=== PATIENT | female | born 1960 | race American Indian/Alaskan Native ===

== ENCOUNTER 2016-09-26 21:48 | Emergency (ER) | payer MEDICARE ==
--- NOTE | 2016-09-26 22:13 | Emergency Department Report ---
ED Altered Mental Status HPI - General Chief Complaint: Psych Stated Complaint: MEDICAL EMERGENCY Time Seen by Provider: 09/26/16 22:11 Source: patient, RN notes reviewed Limitations: Altered Mental Status - History of Present Illness Initial Comments: This patient is a 56-year-old female. She is previously unknown to me. Please see her other medical record ([id number]). The patient has a past medical history of hypertension, schizoaffective disorder , bipolar disorder, mutism and hypothyroidism. The patient presented to the ER after being driving there by a cab. She presented fully just. Upon arrival to triage, the patient was not speaking. She was mute. She would not follow commands. She was brought back emergently. She was found to have a normal fingerstick, and would have episodes of explosive speech, followed by episodes of extreme quiet. The patient does not have any family members with her, and she is unable to describe exacerbating or relieving factors. MD Complaint: confusion -: unknown Consistency of Symptoms: constant Context: other Associated Symptoms: other (per hpi) - Related Data Allergies Allergy/AdvReac Type Severity Reaction Status Date / Time Unable to Assess Allergy Verified 09/27/16 00:02 ED Review of Systems ROS: Stated complaint: MEDICAL EMERGENCY Other details as noted in HPI Comment: Unobtainable due to pts medical conditions ED Physical Exam - General Limitations: Other (the patient is mute. She will not answer open or close any questions. She does not follow commands.) General appearance: in no apparent distress - Head Head exam: Present: atraumatic, normocephalic - Eye Eye exam: Present: normal appearance, PERRL, EOMI. Absent: nystagmus - ENT ENT exam: Present: normal exam, normal orophraynx, mucous membranes moist, normal external ear exam - Neck Neck exam: Present: normal inspection, full ROM. Absent: tenderness, meningismus - Respiratory Respiratory exam: Present: normal lung sounds bilaterally. Absent: respiratory distress, wheezes, rales, rhonchi, stridor, chest wall tenderness, accessory muscle use, decreased breath sounds, prolonged expiratory - Cardiovascular Cardiovascular Exam: Present: regular rate, normal rhythm, normal heart sounds. Absent: systolic murmur, diastolic murmur, rubs, gallop - GI/Abdominal GI/Abdominal exam: Present: soft, normal bowel sounds. Absent: distended, tenderness, guarding, rebound, rigid, pulsatile mass - Extremities Exam Extremities exam: Present: normal inspection, full ROM, normal capillary refill. Absent: calf tenderness - Back Exam Back exam: Present: normal inspection, full ROM. Absent: tenderness, CVA tenderness (R), CVA tenderness (L), muscle spasm, paraspinal tenderness, vertebral tenderness - Neurological Exam Neurological exam: Present: altered, normal gait, other (patient moves 4 extremities spontaneously. There is no obvious facial droop. Patient intermittently speaks in full sentences.) - Psychiatric Psychiatric exam: Present: flat affect - Skin Skin exam: Present: warm, dry, intact, normal color. Absent: rash - Assessment Assessment Interval: Baseline - Level of Consciousness 1a. Level of Consciousness: alert - LOC Questions 1b. LOC Questions: answers no questions correctly - LOC Command 1c. LOC Commands: performs no tasks correctly - Best Gaze 2. Best Gaze: normal (Unable to assess) - Visual 3. Visual: no visual loss (Unable to assess) - Facial Palsy 4. Facial Palsy: normal symmetrical movement - Motor Arm 5b. Motor Arm Right: no drift 5a. Motor Arm Left: no drift - Motor Leg 6a. Motor Leg Left: no drift 6b. Motor Leg Right: no movement - Limb Ataxia 7. Limb Ataxia: amputation (Unable to assess) - Sensory 8. Sensory: severe/total sensory loss (Unable to assess) - Best Language 9. Best Language: mute/global aphasia - Dysarthria 10. Dysarthria: normal - Extinction and Inattention 11. Extinction/Inattention: profound inattention ED Course Vital Signs 09/26/16 09/27/16 09/27/16 22:13 09:10 17:57 Temperature 97.8 F 97 F L 98.5 F Pulse Rate 97 H 77 89 Respiratory 15 18 18 Rate Blood Pressure 168/107 149/94 132/89 [Right] O2 Sat by Pulse 100 99 100 Oximetry - Lab Data Result diagrams: 09/26/16 22:20 09/26/16 22:20 Lab Results 09/26/16 09/26/16 09/26/16 Range/Units 02:00 21:54 22:20 WBC 7.6 (4.5-11.0) K/mm3 RBC 5.29 H (3.65-5.03) M/mm3 Hgb 13.3 (10.1-14.3) gm/dl Hct 42.0 (30.3-42.9) % MCV 79 (79-97) fl MCH 25 L (28-32) pg MCHC 32 (30-34) % RDW 16.0 H (13.2-15.2) % Plt Count 186 (140-440) K/mm3 Lymph % (Auto) 15.6 (13.4-35.0) % [place] % (Auto) 5.4 (0.0-7.3) % Eos % (Auto) 0.1 (0.0-4.3) % Baso % (Auto) 0.5 (0.0-1.8) % Lymph # 1.2 (1.2-5.4) K/mm3 [place] # 0.4 (0.0-0.8) K/mm3 Eos # 0.0 (0.0-0.4) K/mm3 Baso # 0.0 (0.0-0.1) K/mm3 Seg Neutrophils % 78.4 H (40.0-70.0) % Seg Neutrophils # 5.9 (1.8-7.7) K/mm3 PT (12.2-14.9) Sec. INR (0.87-1.13) APTT (24.2-36.6) Sec. Sodium (137-145) mmol/L Potassium (3.6-5.0) mmol/L Chloride (98-107) mmol/L Carbon Dioxide (22-30) mmol/L Anion Gap mmol/L BUN (7-17) mg/dL Creatinine (0.7-1.2) mg/dL Estimated GFR ml/min BUN/Creatinine Ratio % Glucose (65-100) mg/dL POC Glucose 126 H (70-105) Calcium (8.4-10.2) mg/dL Magnesium (1.7-2.3) mg/dL Total Bilirubin (0.1-1.2) mg/dL AST (5-40) units/L ALT (7-56) units/L Alkaline Phosphatase (35-129) units/L Ammonia (25-60) umol/L Total Creatine Kinase (30-135) units/L Troponin T (0.00-0.029) ng/mL Total Protein (6.3-8.2) g/dL Albumin (3.9-5) g/dL Albumin/Globulin Ratio % TSH (0.270-4.200) mlU/mL Free T4 (0.76-1.46) ng/dL Urine Color Yellow (Yellow) Urine Turbidity Clear (Clear) Urine pH 5.0 (5.0-7.0) Ur Specific [place] 1.014 (1.003-1.030) Urine Protein <15 mg/dl (Negative) mg/dL Urine Glucose (UA) Neg (Negative) mg/dL Urine Ketones Neg (Negative) mg/dL Urine Blood Sm (Negative) Urine Nitrite Neg (Negative) Urine Bilirubin Neg (Negative) Urine Urobilinogen 2.0 (<2.0) mg/dL Ur Leukocyte Esterase Neg (Negative) Urine WBC (Auto) 1.0 (0.0-6.0) /HPF Urine RBC (Auto) 3.0 (0.0-6.0) /HPF U Epithel Cells (Auto) 1.0 (0-13.0) /HPF Hyaline Casts 1 /LPF Urine Mucus 2+ /HPF Salicylates (2.8-20.0) mg/dL Urine Opiates Screen Urine Methadone Screen Acetaminophen (10.0-30.0) ug/mL Ur Barbiturates Screen Ur Phencyclidine Scrn Ur Amphetamines Screen U Benzodiazepines Scrn Urine Cocaine Screen U Marijuana (THC) Screen Drugs of Abuse Note Plasma/Serum Alcohol (0-0.07) gm% 09/26/16 09/26/16 09/26/16 Range/Units 22:20 22:20 22:20 WBC (4.5-11.0) K/mm3 RBC (3.65-5.03) M/mm3 Hgb (10.1-14.3) gm/dl Hct (30.3-42.9) % MCV (79-97) fl MCH (28-32) pg MCHC (30-34) % RDW (13.2-15.2) % Plt Count (140-440) K/mm3 Lymph % (Auto) (13.4-35.0) % [place] % (Auto) (0.0-7.3) % Eos % (Auto) (0.0-4.3) % Baso % (Auto) (0.0-1.8) % Lymph # (1.2-5.4) K/mm3 [place] # (0.0-0.8) K/mm3 Eos # (0.0-0.4) K/mm3 Baso # (0.0-0.1) K/mm3 Seg Neutrophils % (40.0-70.0) % Seg Neutrophils # (1.8-7.7) K/mm3 PT 12.3 (12.2-14.9) Sec. INR 0.87 (0.87-1.13) APTT 22.2 L (24.2-36.6) Sec. Sodium 139 (137-145) mmol/L Potassium 3.6 (3.6-5.0) mmol/L Chloride 100.9 (98-107) mmol/L Carbon Dioxide 22 (22-30) mmol/L Anion Gap 20 mmol/L BUN 10 (7-17) mg/dL Creatinine 0.6 L (0.7-1.2) mg/dL Estimated GFR > 60 ml/min BUN/Creatinine Ratio 16.66 % Glucose 130 H (65-100) mg/dL POC Glucose (70-105) Calcium 11.3 H (8.4-10.2) mg/dL Magnesium (1.7-2.3) mg/dL Total Bilirubin 0.40 (0.1-1.2) mg/dL AST 18 (5-40) units/L ALT 7 (7-56) units/L Alkaline Phosphatase 65 (35-129) units/L Ammonia 33.0 (25-60) umol/L Total Creatine Kinase 74 (30-135) units/L Troponin T < 0.010 (0.00-0.029) ng/mL Total Protein 8.4 H (6.3-8.2) g/dL Albumin 4.3 (3.9-5) g/dL Albumin/Globulin Ratio 1.0 % TSH (0.270-4.200) mlU/mL Free T4 (0.76-1.46) ng/dL Urine Color (Yellow) Urine Turbidity (Clear) Urine pH (5.0-7.0) Ur Specific [place] (1.003-1.030) Urine Protein (Negative) mg/dL Urine Glucose (UA) (Negative) mg/dL Urine Ketones (Negative) mg/dL Urine Blood (Negative) Urine Nitrite (Negative) Urine Bilirubin (Negative) Urine Urobilinogen (<2.0) mg/dL Ur Leukocyte Esterase (Negative) Urine WBC (Auto) (0.0-6.0) /HPF Urine RBC (Auto) (0.0-6.0) /HPF U Epithel Cells (Auto) (0-13.0) /HPF Hyaline Casts /LPF Urine Mucus /HPF Salicylates (2.8-20.0) mg/dL Urine Opiates Screen Urine Methadone Screen Acetaminophen (10.0-30.0) ug/mL Ur Barbiturates Screen Ur Phencyclidine Scrn Ur Amphetamines Screen U Benzodiazepines Scrn Urine Cocaine Screen U Marijuana (THC) Screen Drugs of Abuse Note Plasma/Serum Alcohol (0-0.07) gm% 09/26/16 09/26/16 09/26/16 Range/Units 22:20 22:20 22:20 WBC (4.5-11.0) K/mm3 RBC (3.65-5.03) M/mm3 Hgb (10.1-14.3) gm/dl Hct (30.3-42.9) % MCV (79-97) fl MCH (28-32) pg MCHC (30-34) % RDW (13.2-15.2) % Plt Count (140-440) K/mm3 Lymph % (Auto) (13.4-35.0) % [place] % (Auto) (0.0-7.3) % Eos % (Auto) (0.0-4.3) % Baso % (Auto) (0.0-1.8) % Lymph # (1.2-5.4) K/mm3 [place] # (0.0-0.8) K/mm3 Eos # (0.0-0.4) K/mm3 Baso # (0.0-0.1) K/mm3 Seg Neutrophils % (40.0-70.0) % Seg Neutrophils # (1.8-7.7) K/mm3 PT (12.2-14.9) Sec. INR (0.87-1.13) APTT (24.2-36.6) Sec. Sodium (137-145) mmol/L Potassium (3.6-5.0) mmol/L Chloride (98-107) mmol/L Carbon Dioxide (22-30) mmol/L Anion Gap mmol/L BUN (7-17) mg/dL Creatinine (0.7-1.2) mg/dL Estimated GFR ml/min BUN/Creatinine Ratio % Glucose (65-100) mg/dL POC Glucose (70-105) Calcium (8.4-10.2) mg/dL Magnesium (1.7-2.3) mg/dL Total Bilirubin (0.1-1.2) mg/dL AST (5-40) units/L ALT (7-56) units/L Alkaline Phosphatase (35-129) units/L Ammonia (25-60) umol/L Total Creatine Kinase (30-135) units/L Troponin T (0.00-0.029) ng/mL Total Protein (6.3-8.2) g/dL Albumin (3.9-5) g/dL Albumin/Globulin Ratio % TSH 29.180 H (0.270-4.200) mlU/mL Free T4 (0.76-1.46) ng/dL Urine Color (Yellow) Urine Turbidity (Clear) Urine pH (5.0-7.0) Ur Specific [place] (1.003-1.030) Urine Protein (Negative) mg/dL Urine Glucose (UA) (Negative) mg/dL Urine Ketones (Negative) mg/dL Urine Blood (Negative) Urine Nitrite (Negative) Urine Bilirubin (Negative) Urine Urobilinogen (<2.0) mg/dL Ur Leukocyte Esterase (Negative) Urine WBC (Auto) (0.0-6.0) /HPF Urine RBC (Auto) (0.0-6.0) /HPF U Epithel Cells (Auto) (0-13.0) /HPF Hyaline Casts /LPF Urine Mucus /HPF Salicylates < 0.3 L (2.8-20.0) mg/dL Urine Opiates Screen Urine Methadone Screen Acetaminophen < 15.0 (10.0-30.0) ug/mL Ur Barbiturates Screen Ur Phencyclidine Scrn Ur Amphetamines Screen U Benzodiazepines Scrn Urine Cocaine Screen U Marijuana (THC) Screen Drugs of Abuse Note Plasma/Serum Alcohol (0-0.07) gm% 09/26/16 09/26/16 09/26/16 Range/Units 22:20 22:20 22:20 WBC (4.5-11.0) K/mm3 RBC (3.65-5.03) M/mm3 Hgb (10.1-14.3) gm/dl Hct (30.3-42.9) % MCV (79-97) fl MCH (28-32) pg MCHC (30-34) % RDW (13.2-15.2) % Plt Count (140-440) K/mm3 Lymph % (Auto) (13.4-35.0) % [place] % (Auto) (0.0-7.3) % Eos % (Auto) (0.0-4.3) % Baso % (Auto) (0.0-1.8) % Lymph # (1.2-5.4) K/mm3 [place] # (0.0-0.8) K/mm3 Eos # (0.0-0.4) K/mm3 Baso # (0.0-0.1) K/mm3 Seg Neutrophils % (40.0-70.0) % Seg Neutrophils # (1.8-7.7) K/mm3 PT (12.2-14.9) Sec. INR (0.87-1.13) APTT (24.2-36.6) Sec. Sodium (137-145) mmol/L Potassium (3.6-5.0) mmol/L Chloride (98-107) mmol/L Carbon Dioxide (22-30) mmol/L Anion Gap mmol/L BUN (7-17) mg/dL Creatinine (0.7-1.2) mg/dL Estimated GFR ml/min BUN/Creatinine Ratio % Glucose (65-100) mg/dL POC Glucose (70-105) Calcium (8.4-10.2) mg/dL Magnesium 2.10 (1.7-2.3) mg/dL Total Bilirubin (0.1-1.2) mg/dL AST (5-40) units/L ALT (7-56) units/L Alkaline Phosphatase (35-129) units/L Ammonia (25-60) umol/L Total Creatine Kinase (30-135) units/L Troponin T (0.00-0.029) ng/mL Total Protein (6.3-8.2) g/dL Albumin (3.9-5) g/dL Albumin/Globulin Ratio % TSH (0.270-4.200) mlU/mL Free T4 0.60 L (0.76-1.46) ng/dL Urine Color (Yellow) Urine Turbidity (Clear) Urine pH (5.0-7.0) Ur Specific [place] (1.003-1.030) Urine Protein (Negative) mg/dL Urine Glucose (UA) (Negative) mg/dL Urine Ketones (Negative) mg/dL Urine Blood (Negative) Urine Nitrite (Negative) Urine Bilirubin (Negative) Urine Urobilinogen (<2.0) mg/dL Ur Leukocyte Esterase (Negative) Urine WBC (Auto) (0.0-6.0) /HPF Urine RBC (Auto) (0.0-6.0) /HPF U Epithel Cells (Auto) (0-13.0) /HPF Hyaline Casts /LPF Urine Mucus /HPF Salicylates (2.8-20.0) mg/dL Urine Opiates Screen Urine Methadone Screen Acetaminophen (10.0-30.0) ug/mL Ur Barbiturates Screen Ur Phencyclidine Scrn Ur Amphetamines Screen U Benzodiazepines Scrn Urine Cocaine Screen U Marijuana (THC) Screen Drugs of Abuse Note Plasma/Serum Alcohol < 0.01 (0-0.07) gm% 09/27/16 Range/Units 02:00 WBC (4.5-11.0) K/mm3 RBC (3.65-5.03) M/mm3 Hgb (10.1-14.3) gm/dl Hct (30.3-42.9) % MCV (79-97) fl MCH (28-32) pg MCHC (30-34) % RDW (13.2-15.2) % Plt Count (140-440) K/mm3 Lymph % (Auto) (13.4-35.0) % [place] % (Auto) (0.0-7.3) % Eos % (Auto) (0.0-4.3) % Baso % (Auto) (0.0-1.8) % Lymph # (1.2-5.4) K/mm3 [place] # (0.0-0.8) K/mm3 Eos # (0.0-0.4) K/mm3 Baso # (0.0-0.1) K/mm3 Seg Neutrophils % (40.0-70.0) % Seg Neutrophils # (1.8-7.7) K/mm3 PT (12.2-14.9) Sec. INR (0.87-1.13) APTT (24.2-36.6) Sec. Sodium (137-145) mmol/L Potassium (3.6-5.0) mmol/L Chloride (98-107) mmol/L Carbon Dioxide (22-30) mmol/L Anion Gap mmol/L BUN (7-17) mg/dL Creatinine (0.7-1.2) mg/dL Estimated GFR ml/min BUN/Creatinine Ratio % Glucose (65-100) mg/dL POC Glucose (70-105) Calcium (8.4-10.2) mg/dL Magnesium (1.7-2.3) mg/dL Total Bilirubin (0.1-1.2) mg/dL AST (5-40) units/L ALT (7-56) units/L Alkaline Phosphatase (35-129) units/L Ammonia (25-60) umol/L Total Creatine Kinase (30-135) units/L Troponin T (0.00-0.029) ng/mL Total Protein (6.3-8.2) g/dL Albumin (3.9-5) g/dL Albumin/Globulin Ratio % TSH (0.270-4.200) mlU/mL Free T4 (0.76-1.46) ng/dL Urine Color (Yellow) Urine Turbidity (Clear) Urine pH (5.0-7.0) Ur Specific [place] (1.003-1.030) Urine Protein (Negative) mg/dL Urine Glucose (UA) (Negative) mg/dL Urine Ketones (Negative) mg/dL Urine Blood (Negative) Urine Nitrite (Negative) Urine Bilirubin (Negative) Urine Urobilinogen (<2.0) mg/dL Ur Leukocyte Esterase (Negative) Urine WBC (Auto) (0.0-6.0) /HPF Urine RBC (Auto) (0.0-6.0) /HPF U Epithel Cells (Auto) (0-13.0) /HPF Hyaline Casts /LPF Urine Mucus /HPF Salicylates (2.8-20.0) mg/dL Urine Opiates Screen Presumptive negative Urine Methadone Screen Presumptive negative Acetaminophen (10.0-30.0) ug/mL Ur Barbiturates Screen Presumptive negative Ur Phencyclidine Scrn Presumptive negative Ur Amphetamines Screen Presumptive negative U Benzodiazepines Scrn Presumptive positive Urine Cocaine Screen Presumptive negative U Marijuana (THC) Screen Presumptive negative Drugs of Abuse Note Disclamer Plasma/Serum Alcohol (0-0.07) gm% - EKG Data -: EKG Interpreted by Me 09/27/16 01:32 Normal sinus, 88 bpm, left axis deviation, left ventricular hypertrophy, abnormal EKG, not morphologically consistent with STEMI, appears unchanged from prior from January 2015. - Radiology Data Radiology results: report reviewed, image reviewed interpreted by me: X-ray the chest is negative - Medical Decision Making Noncontrast CT scan of the brain is negative Differential diagnosis: Pneumonia, intracranial hemorrhage, mutism, conversion disorder, hypothyroidism, urinary tract infection, psychiatric disease Assessment and plan: 56-year-old female with known history of mutism, hypothyroidism, who presents essentially with meat speech, with intermittent periods of explosive speech. She is afebrile with unremarkable vital signs, her presentation today appears to be similar to prior presentations when medical records are reviewed. Laboratory studies chemistry hypothyroidism, which in and of itself would not be an immediate medical complication to psychiatric placement, as I would otherwise discharge the patient with Synthroid and instructions to follow up with primary care doctor if she would not psychiatrically ill or decompensated. She is placed on a 1013, her vital signs have remained stable, x-ray of the chest is negative, noncontrast CT scan of the brain is negative. Patient's old medication list is reviewed from prior chart review, she will be continued on her outpatient medications. At this point in time, there is no immediate medical contraindication to psychiatric admission/evaluation and consultation, and the crisis team has been informed. The urinalysis is pending. Given that there is no indication of trauma from her physical exam, there is no ecchymosis, there is no spinal tenderness, she is moving 4 extremities spontaneously, and given that she has presented multiple times in the past for similar mute behavior, I do believe she requires CT scan of the cervical spine. - Core Measures Measure Exclusions: not indicated Critical care attestation.: If time is entered above; I have spent that time in minutes in the direct care of this critically ill patient, excluding procedure time. ED Disposition Clinical Impression: Mutism, Mood disorder Disposition: DC/TX-65 PSY HOSP/PSY UNIT Is pt being admited?: No Does the pt Need Aspirin: No Condition: Stable Referrals: PRIMARY CARE, [Primary Care Provider] - 3-5 Days
[2016-09-26 22:57] LABS: Basophils % (Auto) 0.5 % (0.0-1.8); Eosinophils % (Auto) 0.1 % (0.0-4.3); Hemoglobin 13.3 gm/dl (10.1-14.3); Mean Corpuscular HGB Conc 32 % (30-34); Mean Corpuscular Volume 79 fl (79-97); Platelet Count 186 K/mm3 (140-440); Red Blood Count 5.29 M/mm3 (3.65-5.03); White Blood Count 7.6 K/mm3 (4.5-11.0)
[2016-09-26 22:59] LABS: Mean Corpuscular Hemoglobin 25 pg (28-32)
[2016-09-26] MEDS ORDERED: ATIVAN IM PRN (22:59)
[2016-09-26] MEDS ORDERED: HALDOL IM ONE (22:59)
[2016-09-26 23:05] LABS: INR 0.87 (0.87-1.13)
[2016-09-26 23:06] LABS: Partial Thromboplastin Time 22.2 Sec. (24.2-36.6)
[2016-09-26 23:11] LABS: Albumin 4.3 g/dL (3.9-5); Alkaline Phosphatase 65 units/L (35-129); BUN/Creatinine Ratio 16.66; Blood Urea Nitrogen 10 mg/dL (7-17); Calcium 11.3 mg/dL (8.4-10.2); Carbon Dioxide 22 mmol/L (22-30); Chloride 100.9 mmol/L (98-107); Creatine Kinase 74 units/L (30-135); Glucose 130 mg/dL (65-100); Sodium 139 mmol/L (137-145); Total Protein 8.4 g/dL (6.3-8.2)
[2016-09-26 23:33] LABS: Alanine Aminotransferase 7 units/L (7-56); Anion Gap 20 mmol/L; Potassium 3.6 mmol/L (3.6-5.0)
[2016-09-26] MEDS ORDERED: VALIUM ONE (23:54)
[2016-09-26] MEDS ORDERED: GEODON IM ONE (23:55)
[2016-09-26] MEDS ORDERED: VALIUM IV ONE (23:56)
--- NOTE | 2016-09-27 00:50 | Cat Scan Report ---
FINAL REPORT PROCEDURE: CT HEAD/BRAIN WO CON TECHNIQUE: Computerized tomography of the head was performed without contrast material. HISTORY: Altered Mental Status COMPARISON: No prior studies are available for comparison. FINDINGS: Skull and scalp: Normal. Paranasal sinuses: Normal. Ventricles and subarachnoid spaces: Normal. Cerebrum: No evidence of hemorrhage, acute infarction or mass . Cerebellum and brainstem: No evidence of hemorrhage, acute infarction or mass. Vasculature: Normal. Comments: None. IMPRESSION: There is no evidence of an acute intracranial process
[2016-09-27 02:31] LABS: Urine Drugs of Abuse Note Disclamer
[2016-09-27 02:39] LABS: Bilirubin,Urine NEG (Negative); Blood,Urine SM (Negative); Ketones,Urine NEG (Negative); Leukocyte Esterase,Urine NEG (Negative); Mucus,Urine 2+ /HPF; Nitrite,Urine NEG (Negative); Protein,Urine <15 mg/dL mg/dL (Negative)
[2016-09-27] MEDS: RisperDAL PO SCH ×2 (02:43→09:59)
[2016-09-27] MEDS: COGENTIN PO SCH ×2 (02:43→09:59)
[2016-09-27] MEDS ORDERED: SYNTHROID PO SCH ×2 (06:00→10:00)
[2016-09-27] MEDS ORDERED: XOPENEX IH ONE (06:18)
[2016-09-27] MEDS ORDERED: ZESTRIL PO SCH (10:00)
[2016-09-27] MEDS ORDERED: NORVASC PO SCH (10:00)
[2016-09-27] MEDS ORDERED: DIOVAN PO SCH (10:00)
--- NOTE | 2016-09-27 10:00 | XRay Report ---
AP CHEST :09/26/16 21:48:00 CLINICAL: Altered mental status. COMPARISON:None. FINDINGS: Normal heart and pulmonary vasculature. The lungs are normally expanded and clear. The bones and soft tissues are normal. IMPRESSION: Normal chest.
--- NOTE | 2016-09-27 15:55 | Consultation ---
History of Present Illness - Reason for Consult Consult date: 09/27/16 Reason for consult: psychiatric evaluation - Chief Complaint Chief complaint: "I didn't have any food" This patient is a 56-year-old female seen for psychiatric evaluation in the ER. She was observed eating. She stated she was not fed properly at the transitional home she is staying at because she didn't have any money. She was selectively mute. She has been at the transitional home for 4 months and prior to that she was in an in hospital. She cannot give further details except to say she has been in multiple facilities in her life and 4 in the last year. The patient has a past medical history of hypertension, schizoaffective disorder , bipolar disorder, mutism and hypothyroidism. The patient does not have any family members with her, and no further history could be obtained. Medications and Allergies Allergies Allergy/AdvReac Type Severity Reaction Status Date / Time Unable to Assess Allergy Verified 09/27/16 00:02 Active Meds: Active Medications Amlodipine Besylate (Norvasc) 10 mg PO QDAY [facility] Last Admin: 09/27/16 09:59 Dose: 10 mg Benztropine Mesylate (Cogentin) 1 mg PO BID [facility] Last Admin: 09/27/16 09:59 Dose: 1 mg Clonazepam (Klonopin) 0.5 mg PO BID [facility] Last Admin: 09/27/16 09:59 Dose: 0.5 mg Diphenhydramine HCl (Benadryl) 50 mg PO QHS [facility] Levothyroxine Sodium (Synthroid) 50 mcg PO DAILY@0600 [facility] Last Admin: 09/27/16 06:51 Dose: 50 mcg Lisinopril (Zestril) 30 mg PO QDAY [facility] Last Admin: 09/27/16 09:59 Dose: 30 mg Lorazepam (Ativan) 2 mg IM Q4HR PRN PRN Reason: Agitation Last Admin: 09/26/16 23:47 Dose: 2 mg Risperidone (Risperdal) 3 mg PO BID [facility] Last Admin: 09/27/16 09:59 Dose: 3 mg Simvastatin (Zocor) 20 mg PO QHS [facility] Valsartan (Diovan) 160 mg PO QDAY [facility] Last Admin: 09/27/16 09:59 Dose: 160 mg Mental Status Exam - Vital signs Last Vital Signs Temp 97 F L 09/27/16 09:10 Pulse 77 09/27/16 09:10 Resp 18 09/27/16 09:10 BP 149/94 09/27/16 09:10 Pulse Ox 99 09/27/16 09:10 - Exam Narrative exam: unable to assess thought content, perceptions, sleep, memory Orientation: place, person Affect: other (indifferent) Mood: congruent with affect Thought content: other (unable to assess) Perceptions: other (unable to assess) Speech: other (selectively mute) Concentration: distractible Motor activity: normal Level of consciousness: alert Interaction: other (intermittently cooperative) Results Result Diagrams: 09/26/16 22:20 09/26/16 22:20 Abnormal lab results 09/26/16 09/26/16 09/26/16 Range/Units 21:54 22:20 22:20 RBC 5.29 H (3.65-5.03) M/mm3 MCH 25 L (28-32) pg RDW 16.0 H (13.2-15.2) % Seg Neutrophils % 78.4 H (40.0-70.0) % APTT 22.2 L (24.2-36.6) Sec. Creatinine (0.7-1.2) mg/dL Glucose (65-100) mg/dL POC Glucose 126 H (70-105) Calcium (8.4-10.2) mg/dL Total Protein (6.3-8.2) g/dL TSH (0.270-4.200) mlU/mL Free T4 (0.76-1.46) ng/dL Salicylates (2.8-20.0) mg/dL 09/26/16 09/26/16 09/26/16 Range/Units 22:20 22:20 22:20 RBC (3.65-5.03) M/mm3 MCH (28-32) pg RDW (13.2-15.2) % Seg Neutrophils % (40.0-70.0) % APTT (24.2-36.6) Sec. Creatinine 0.6 L (0.7-1.2) mg/dL Glucose 130 H (65-100) mg/dL POC Glucose (70-105) Calcium 11.3 H (8.4-10.2) mg/dL Total Protein 8.4 H (6.3-8.2) g/dL TSH 29.180 H (0.270-4.200) mlU/mL Free T4 (0.76-1.46) ng/dL Salicylates < 0.3 L (2.8-20.0) mg/dL 09/26/16 Range/Units 22:20 RBC (3.65-5.03) M/mm3 MCH (28-32) pg RDW (13.2-15.2) % Seg Neutrophils % (40.0-70.0) % APTT (24.2-36.6) Sec. Creatinine (0.7-1.2) mg/dL Glucose (65-100) mg/dL POC Glucose (70-105) Calcium (8.4-10.2) mg/dL Total Protein (6.3-8.2) g/dL TSH (0.270-4.200) mlU/mL Free T4 0.60 L (0.76-1.46) ng/dL Salicylates (2.8-20.0) mg/dL All other labs normal. Assessment and Plan Assessment and plan: Impression: psychotic disorder, unspecified ddx: schizophrenia Recommendation: continue 1013 and transfer to inpatient psychiatric treatment for stabilization of psychosis
[2016-09-27 17:58] VITALS: BP 132/89
[2016-09-27] MEDS ORDERED: BENADRYL PO SCH ×2 (22:00)
[2016-09-27] MEDS ORDERED: ZOCOR PO SCH (22:00)
== END 2016-09-27 17:57 ==
LOC: EEVIPCON 21:48 → EDBD 21:48 → ED 21:48
DX: F39 Unspecified mood [affective] disorder (principal); R47.01 Aphasia
CPT/HCPCS: 36415; 70450; 71010; 80053; 80307; 81001; 82140; 82550; 82962; 83735; 84439; 84443; 84484; 85025; 85610; 85730; 87086; 93005; 93010; 96372; 99285; G0480; J1630; J2060; J3360; J3486; 80320

== ENCOUNTER 2016-11-04 20:41 | Emergency (ER) | payer MEDICARE ==
[2016-11-04 23:51] LABS: Anion Gap 17 mmol/L; BUN/Creatinine Ratio 15.71; Blood Urea Nitrogen 11 mg/dL (7-17); Calcium 10.6 mg/dL (8.4-10.2); Carbon Dioxide 22 mmol/L (22-30); Chloride 104.5 mmol/L (98-107); Glucose 103 mg/dL (65-100); Potassium 3.3 mmol/L (3.6-5.0); Sodium 140 mmol/L (137-145)
[2016-11-04 23:59] LABS: Basophils % (Auto) 0.3 % (0.0-1.8); Eosinophils % (Auto) 0.2 % (0.0-4.3); Hematocrit 39.3 % (30.3-42.9); Hemoglobin 12.3 gm/dl (10.1-14.3); Mean Corpuscular HGB Conc 31 % (30-34); Mean Corpuscular Volume 80 fl (79-97); Platelet Count 167 K/mm3 (140-440); Red Cell Distribution Width 16.2 % (13.2-15.2); White Blood Count 5.3 K/mm3 (4.5-11.0)
[2016-11-05 00:03] LABS: Urine Drugs of Abuse Note Disclamer
[2016-11-05 00:08] LABS: Bilirubin,Urine NEG (Negative); Blood,Urine NEG (Negative); Ketones,Urine NEG (Negative); Leukocyte Esterase,Urine NEG (Negative); Mucus,Urine FEW /HPF; Nitrite,Urine NEG (Negative); Protein,Urine <15 mg/dL mg/dL (Negative); Urobilinogen,Urine < 2.0 mg/dL (<2.0)
[2016-11-05 00:09] LABS: Mean Corpuscular Hemoglobin 25 pg (28-32)
[2016-11-05] MEDS ORDERED: K-DUR PO ONE (10:36)
--- NOTE | 2016-11-05 10:36 | Emergency Department Report ---
ED Psych HPI - General Chief Complaint: Psych Stated Complaint: MH Time Seen by Provider: 11/05/16 10:34 Source: patient Mode of arrival: Stretcher - History of Present Illness Initial Comments: Patient with multiple psychiatric diagnoses such as schizoaffective disorder, bipolar disorder and mutism presents to the emergency department for apparent decompensation. She is not communicative. She will only tell me her first name. She is distracted with flat affect and probably responding to internal stimuli. She is not providing any historical information. MD Complaint: other (acute on chronic psychosis) -: unknown Associated Psychiatric Symptoms: other (mutism) History of same: Yes Quality: constant Improves With: none Worsens With: none Associated Symptoms: other (not providing any history) - Related Data Home Medications Medication Instructions Recorded Confirmed Last Taken Benztropine [Cogentin] 1 mg PO BID 07/13/16 07/13/16 Unknown Levothyroxine [Synthroid] 25 mcg PO QAM 07/13/16 07/13/16 Unknown Lisinopril [Zestril TAB] 30 mg PO QDAY 07/13/16 07/13/16 Unknown Simvastatin [Zocor TAB] 20 mg PO QHS 07/13/16 07/13/16 Unknown Valsartan [Diovan] 160 mg PO QDAY 07/13/16 07/13/16 Unknown amLODIPine [Norvasc] 10 mg PO DAILY 07/13/16 07/13/16 Unknown clonazePAM 0.5 mg PO BID 07/13/16 07/13/16 Unknown diphenhydrAMINE [Benadryl CAP] 50 mg PO QHS 07/13/16 07/13/16 Unknown risperiDONE [RisperiDONE] 3 mg PO BID 07/13/16 07/13/16 Unknown Allergies Allergy/AdvReac Type Severity Reaction Status Date / Time Penicillins Allergy Unknown Verified 06/20/16 06:58 ED Review of Systems ROS: Stated complaint: MH Other details as noted in HPI Comment: Unobtainable due to pts medical conditions ED Past Medical Hx - Past Medical History Previous Medical History?: Yes Hx Hypertension: Yes Hx Sickle Cell Disease: Yes (sickle cell trait) Hx Psychiatric Treatment: Yes (schizoaffective disorder, bipolar, agressive) Additional medical history: unknown - Surgical History Past Surgical History?: No Additional Surgical History: unknown - Social History Smoking Status: Unknown if ever smoked Substance Use Type: None - Medications Home Medications: Home Medications Medication Instructions Recorded Confirmed Last Taken Type Benztropine [Cogentin] 1 mg PO BID 07/13/16 07/13/16 Unknown History Levothyroxine [Synthroid] 25 mcg PO QAM 07/13/16 07/13/16 Unknown History Lisinopril [Zestril TAB] 30 mg PO QDAY 07/13/16 07/13/16 Unknown History Simvastatin [Zocor TAB] 20 mg PO QHS 07/13/16 07/13/16 Unknown History Valsartan [Diovan] 160 mg PO QDAY 07/13/16 07/13/16 Unknown History amLODIPine [Norvasc] 10 mg PO DAILY 07/13/16 07/13/16 Unknown History clonazePAM 0.5 mg PO BID 07/13/16 07/13/16 Unknown History diphenhydrAMINE [Benadryl CAP] 50 mg PO QHS 07/13/16 07/13/16 Unknown History risperiDONE [RisperiDONE] 3 mg PO BID 07/13/16 07/13/16 Unknown History ED Physical Exam - General Limitations: Other (psychiatric disorder) General appearance: alert, in no apparent distress - Head Head exam: Present: atraumatic, normocephalic - Eye Eye exam: Present: normal appearance, PERRL, EOMI. Absent: scleral icterus - ENT ENT exam: Present: mucous membranes moist. Absent: normal exam - Neck Neck exam: Present: normal inspection. Absent: tenderness, meningismus - Respiratory Respiratory exam: Present: normal lung sounds bilaterally. Absent: respiratory distress - Cardiovascular Cardiovascular Exam: Present: regular rate, normal rhythm. Absent: systolic murmur, diastolic murmur, rubs, gallop - GI/Abdominal GI/Abdominal exam: Present: soft, normal bowel sounds. Absent: distended, tenderness, guarding, rebound - Extremities Exam Extremities exam: Present: normal inspection - Back Exam Back exam: Present: normal inspection - Neurological Exam Neurological exam: Present: altered, CN II-XII intact (as testable). Absent: motor sensory deficit - Psychiatric Psychiatric exam: Present: normal mood, flat affect, other (distracted and responding to internal stimuli) - Skin Skin exam: Present: warm, dry, intact, normal color. Absent: rash ED Course Vital Signs 11/04/16 11/05/16 11/05/16 22:03 06:42 10:40 Temperature 98.1 F 99.0 F Pulse Rate 99 H 80 62 Respiratory 18 18 Rate Blood Pressure 160/102 150/101 Blood Pressure 153/97 [Left] O2 Sat by Pulse 98 97 Oximetry - Reevaluation(s) Reevaluation #1: The patient was given Geodon. Apparently she was more communicative with the mental health counselor. She will be 1013 hold pending psychiatric evaluation. Mental health counselor will refer to psychiatrist making rounds here or alternatively the patient will be sent for inpatient stabilization.. 11/05/16 15:29 ED Medical Decision Making - Lab Data Result diagrams: 11/04/16 23:20 11/04/16 23:20 Laboratory Results - last 24 hr 11/04/16 11/04/16 11/04/16 23:17 23:20 23:20 WBC RBC Hgb Hct MCV MCH MCHC RDW Plt Count Lymph % (Auto) Quay % (Auto) Eos % (Auto) Baso % (Auto) Lymph # Quay # Eos # Baso # Seg Neutrophils % Seg Neutrophils # Sodium 140 Potassium 3.3 L Chloride 104.5 Carbon Dioxide 22 Anion Gap 17 BUN 11 Creatinine 0.7 Estimated GFR > 60 BUN/Creatinine Ratio 15.71 Glucose 103 H Calcium 10.6 H Urine Color Yellow Urine Turbidity Clear Urine pH 5.0 Ur Specific [place] 1.008 Urine Protein <15 mg/dl Urine Glucose (UA) Neg Urine Ketones Neg Urine Blood Neg Urine Nitrite Neg Urine Bilirubin Neg Urine Urobilinogen < 2.0 Ur Leukocyte Esterase Neg Urine WBC (Auto) 1.0 Urine RBC (Auto) 1.0 U Epithel Cells (Auto) 2.0 Hyaline Casts 1 Urine Mucus Few Urine Opiates Screen Urine Methadone Screen Ur Barbiturates Screen Ur Phencyclidine Scrn Ur Amphetamines Screen U Benzodiazepines Scrn Urine Cocaine Screen U Marijuana (THC) Screen Drugs of Abuse Note Plasma/Serum Alcohol < 0.01 11/04/16 11/05/16 23:20 00:01 WBC 5.3 RBC 4.90 Hgb 12.3 Hct 39.3 MCV 80 MCH 25 L MCHC 31 RDW 16.2 H Plt Count 167 Lymph % (Auto) 18.6 Quay % (Auto) 8.7 H Eos % (Auto) 0.2 Baso % (Auto) 0.3 Lymph # 1.0 L Quay # 0.5 Eos # 0.0 Baso # 0.0 Seg Neutrophils % 72.2 H Seg Neutrophils # 3.8 Sodium Potassium Chloride Carbon Dioxide Anion Gap BUN Creatinine Estimated GFR BUN/Creatinine Ratio Glucose Calcium Urine Color Urine Turbidity Urine pH Ur Specific [place] Urine Protein Urine Glucose (UA) Urine Ketones Urine Blood Urine Nitrite Urine Bilirubin Urine Urobilinogen Ur Leukocyte Esterase Urine WBC (Auto) Urine RBC (Auto) U Epithel Cells (Auto) Hyaline Casts Urine Mucus Urine Opiates Screen Presumptive negative Urine Methadone Screen Presumptive negative Ur Barbiturates Screen Presumptive negative Ur Phencyclidine Scrn Presumptive negative Ur Amphetamines Screen Presumptive negative U Benzodiazepines Scrn Presumptive negative Urine Cocaine Screen Presumptive negative U Marijuana (THC) Screen Presumptive negative Drugs of Abuse Note Disclamer Plasma/Serum Alcohol Critical care attestation.: If time is entered above; I have spent that time in minutes in the direct care of this critically ill patient, excluding procedure time. ED Disposition Clinical Impression: Acute psychosis Schizoaffective disorder Qualifiers: Schizoaffective disorder type: bipolar Qualified Code(s): F25.0 - Schizoaffective disorder, bipolar type Disposition: DC/TX-65 PSY HOSP/PSY UNIT Is pt being admited?: No Does the pt Need Aspirin: No Condition: Stable Referrals: PRIMARY CARE [Primary Care Provider] - 3-5 Days Time of Disposition: 15:30
[2016-11-05] MEDS ORDERED: GEODON IM ONE (11:02)
[2016-11-05] MEDS ORDERED: WATER FOR INJ (PF) 10 ML ONE (11:27)
[2016-11-05] MEDS: GEODON PO SCH ×2 (13:05→22:57)
[2016-11-05] MEDS ORDERED: ALUM-MAG HYDROX-SIMETH 200-200-20MG/5ML PO PRN (15:31)
[2016-11-05] MEDS ORDERED: MILK OF MAGNESIA PO PRN (15:31)
[2016-11-06] MEDS: GEODON PO SCH ×2 (10:45→22:29)
--- NOTE | 2016-11-06 14:05 | Consultation ---
History of Present Illness - Reason for Consult Consult date: 11/06/16 Reason for consult: Mental Health Evaluation Requesting physician: MELISSA BERRIOS - Chief Complaint Chief complaint: "What" - History of Present Psychiatric Illness Patient with multiple psychiatric diagnoses such as schizoaffective disorder, bipolar disorder and mutism presents to the emergency department for apparent decompensation. Today patient is calm, but uncooperative during the assessment. When I asked patient her name, she just looked at me and said, "What." She would not answer any questions asked of her. Per the staff, she did eat 100% of her meals today. No gestures of SI/HI's. Patient took her Geodon this morning. Medications and Allergies Allergies Allergy/AdvReac Type Severity Reaction Status Date / Time Penicillins Allergy Unknown Verified 06/20/16 06:58 Home Medications Medication Instructions Recorded Confirmed Last Taken Type Benztropine [Cogentin] 1 mg PO BID 07/13/16 07/13/16 Unknown History Levothyroxine [Synthroid] 25 mcg PO QAM 07/13/16 07/13/16 Unknown History Lisinopril [Zestril TAB] 30 mg PO QDAY 07/13/16 07/13/16 Unknown History Simvastatin [Zocor TAB] 20 mg PO QHS 07/13/16 07/13/16 Unknown History Valsartan [Diovan] 160 mg PO QDAY 07/13/16 07/13/16 Unknown History amLODIPine [Norvasc] 10 mg PO DAILY 07/13/16 07/13/16 Unknown History clonazePAM 0.5 mg PO BID 07/13/16 07/13/16 Unknown History diphenhydrAMINE [Benadryl CAP] 50 mg PO QHS 07/13/16 07/13/16 Unknown History risperiDONE [RisperiDONE] 3 mg PO BID 07/13/16 07/13/16 Unknown History Active Meds: Active Medications Acetaminophen (Tylenol) 650 mg PO Q4HR PRN PRN Reason: Pain MILD(1-3)/Fever >100.5/MAYO Al Hydrox/Mg Hydrox/Simethicone (Alum-Mag Hydrox-Simeth [phone]/5ml) 30 ml PO Q4HR PRN PRN Reason: Indigestion Magnesium Hydroxide (Milk Of Magnesia) 30 ml PO Q12HR PRN PRN Reason: Constipation Ziprasidone (Geodon) 20 mg PO BID MERLIN Last Admin: 11/06/16 10:45 Dose: 20 mg Past psychiatric history - Past Medical History Past Medical History: other (Unable to assess) Past Surgical History: Other (Unable to assess) - past Psychiatric treatment and history psychiatric treatment history: Per the notes, luis manuel has hx of schizophrenia. - Social History Social history: other (reside at a transitional home) Mental Status Exam - Vital signs Last Vital Signs Temp 98.7 F 11/05/16 15:33 Pulse 60 11/05/16 15:33 Resp 18 11/06/16 11:18 BP 154/94 11/05/16 15:33 Pulse Ox 98 11/05/16 15:33 - Exam Narrative exam: MSE: Appearance: calm Behavior: regular eye contact Speech: say a few word, regular rate and tone Mood: labile Affect: flat Thought Process: unable to assess Thought Content: no gestures of SI/HI's and AVH's Motor Activity: ambulatory Cognition: unable to assess Insight: unable to assess Judgment: unable to assess Results Result Diagrams: 11/04/16 23:20 11/04/16 23:20 All other labs normal. Assessment and Plan Assessment and plan: Impression: Historical Dx: Schizophrenia/Select Mutism. Unspecified Mood DO. Today patient is calm, but uncooperative during the assessment. DDx: Schizoaffective DO, R/O Bipolar Recommendation/Plan: Continue 1013. Continue Geodon 20 mg BID for mood. Gather more collateral information from group/transitional home. Discussed possible metabolic side effects of Geodon with patient.
[2016-11-07] MEDS: GEODON PO SCH ×2 (10:20→22:17)
--- NOTE | 2016-11-07 11:20 | Progress Note ---
Subjective - Reason for Consult Consult date: 11/07/16 Reason for consult: Psychiatry Follow-up - Chief Complaint Chief complaint: "Hello" Patient with multiple psychiatric diagnoses such as schizoaffective disorder, bipolar disorder and mutism presents to the emergency department for apparent decompensation. Today patient is calm and cooperative during the assessment. She would answer questions today, but they were not logical. Patient had to be redirected several time during our conversation to keep her engaged. She kept asking me, "Are you my doctor." She denies SI/HI's and AVH's. She denies any side effects of her medication. Mental Status Exam - Vital signs Last Vital Signs Temp 98 F 11/07/16 10:20 Pulse 80 11/07/16 10:20 Resp 18 11/07/16 10:20 BP 162/98 11/07/16 10:20 Pulse Ox 97 11/07/16 10:20 - Exam Narrative exam: MSE: Appearance: calm, cooperative Behavior: regular eye contact Speech: regular rate and tone Mood: "okay" Affect: flat Thought Process: tangential Thought Content: denies SI/HI's and AVH's Motor Activity: ambulatory Cognition: A/O x3 Insight: limited Judgment: limited Assessment and Plan Impression: Historical Dx: Schizophrenia/Select Mutism. Unspecified Mood DO. Today patient is calm and cooperative during the assessment. DDx: Schizoaffective DO, R/O Bipolar Recommendation/Plan: Continue 1013. Modify Geodon to 40 mg BID for mood. Discussed possible metabolic side effects of Geodon with patient.
[2016-11-07] MEDS: TYLENOL PO PRN (14:58)
[2016-11-08] MEDS ORDERED: NORVASC PO SCH (10:00)
[2016-11-08] MEDS: GEODON PO SCH ×2 (10:30→22:01)
[2016-11-08] MEDS: NORVASC PO SCH (10:30)
[2016-11-08] MEDS: ZESTRIL PO SCH (11:11)
[2016-11-09] MEDS: TYLENOL PO PRN ×2 (05:52→11:34)
[2016-11-09] MEDS: GEODON PO SCH ×2 (09:55→21:38)
[2016-11-09] MEDS: NORVASC PO SCH (09:56)
[2016-11-09] MEDS: ZESTRIL PO SCH (09:56)
--- NOTE | 2016-11-10 11:41 | Progress Note ---
Subjective - Reason for Consult Consult date: 11/10/16 Reason for consult: Psychiatry Follow-up - Chief Complaint Chief complaint: "Hello" Patient with multiple psychiatric diagnoses such as schizoaffective disorder, bipolar disorder and mutism presents to the emergency department for apparent decompensation. Today patient is calm cooperative during the assessment. Patient is not logical with her answers when questioned. During the assessment she would pause for multiple seconds before answering, possibly responding to some type of stimuli. She denies SI/HI's and AVH's. She denies any side effects of her medication. Patient is adamant about going to [facility]. Mental Status Exam - Vital signs Last Vital Signs Temp 98.3 F 11/09/16 22:00 Pulse 63 11/09/16 22:00 Resp 16 11/09/16 22:00 BP 126/80 11/09/16 22:00 Pulse Ox 99 11/09/16 22:00 - Exam Narrative exam: MSE: Appearance: calm Behavior: regular eye contact Speech: regular rate and tone Mood: "I'm well" Affect: flat Thought Process: tangential Thought Content: denies SI/HI's and AVH's Motor Activity: ambulatory Cognition: A/O x3 Insight: limited Judgment: limited Assessment and Plan Impression: Historical Dx: Schizophrenia/Select Mutism. Unspecified Mood DO with psychotic features. Today patient is calm during the assessment. Patient has a tangential thought process. DDx: Schizoaffective DO, R/O Bipolar Recommendation/Plan: Continue 1013. Start Abilify 20 mg PO Daily for psychosis and Cogentin 0.5 mg PO HS EPS prevention. Discussed possible metabolic side effects of Abilify with patient.
[2016-11-10] MEDS: GEODON PO SCH (13:06)
[2016-11-10] MEDS: NORVASC PO SCH (13:06)
[2016-11-10] MEDS: ZESTRIL PO SCH (13:06)
[2016-11-10] MEDS: COGENTIN PO SCH (21:35)
[2016-11-10] MEDS: ABILIFY PO SCH (21:35)
--- NOTE | 2016-11-11 11:28 | Progress Note ---
Subjective - Reason for Consult Consult date: 11/11/16 Reason for consult: Psychiatry Follow-up - Chief Complaint Chief complaint: "Hello" Patient with multiple psychiatric diagnoses such as schizoaffective disorder, bipolar disorder and mutism presents to the emergency department for apparent decompensation. Today patient is calm and cooperative with a circumstantial thought process. Patient was more engaging and pleasant than previous assessment. She was observed eating her meals. She denies SI/HI's, AVH's, and depression. Per the staff, no behavioral disturbances overnight. She denies any side effects of her medications. Mental Status Exam - Vital signs Last Vital Signs Temp 98.8 F 11/11/16 05:16 Pulse 68 11/11/16 05:16 Resp 20 11/11/16 05:16 BP 174/93 11/11/16 05:16 Pulse Ox 100 11/11/16 05:16 - Exam Narrative exam: MSE: Appearance: calm, cooperative Behavior: regular eye contact Speech: regular rate and tone Mood: "okay" Affect: congruent to mood Thought Process: circumstantial Thought Content: denies SI/HI's and AVH's Motor Activity: ambulatory Cognition: A/O x3 Insight: variable Judgment: variable Assessment and Plan Impression: Historical Dx: Schizophrenia/Select Mutism. Unspecified Mood DO with psychotic features. Today patient is calm during the assessment. Patient has a circumstantial thought process. DDx: Schizoaffective DO, R/O Bipolar Recommendation/Plan: Evaluate 1013 in 24 to determine proper dispo. Continue Abilify 20 mg PO Daily for psychosis and Cogentin 0.5 mg PO HS EPS prevention. Discussed possible metabolic side effects of Abilify with patient.
[2016-11-11] MEDS: ZESTRIL PO SCH (11:52)
[2016-11-11] MEDS: NORVASC PO SCH (11:52)
[2016-11-11] MEDS: COGENTIN PO SCH (12:07)
[2016-11-11] MEDS: ABILIFY PO SCH (12:07)
[2016-11-11] MEDS: TYLENOL PO PRN (22:10)
[2016-11-12] MEDS: COGENTIN PO SCH (09:32)
[2016-11-12] MEDS: NORVASC PO SCH (09:32)
[2016-11-12] MEDS: ZESTRIL PO SCH (09:32)
[2016-11-12] MEDS: ABILIFY PO SCH (09:32)
--- NOTE | 2016-11-12 18:09 | Emergency Department Report ---
Blank Doc - Documentation Documentation: I was asked to see this patient as the original 1013 had and the patient has received placement. She has a history of schizoaffective disorder, bipolar disorder and mutism and was seen by my colleague one week ago in which the patient appeared to have acute psychosis. I would see the patient and she is currently resting comfortably. Vital signs stable. There does not appear to be any new labs that were ordered. She still appears medically cleared for psychiatric placement. I filled out the 1013 based on the original assessment of psychosis and the fact that the psychiatric team has not rescinded the 1013, indicating that she is a good candidate for inpatient psychiatric placement.
--- NOTE | 2016-11-13 11:00 | Progress Note ---
Subjective - Reason for Consult Consult date: 11/13/16 Reason for consult: Psychiatry Follow-up - Chief Complaint Chief complaint: "What do you want" Patient with multiple psychiatric diagnoses such as schizoaffective disorder, bipolar disorder and mutism presents to the emergency department for apparent decompensation. Today patient is calm with a disorganized thought process. Patient was asked about her living arrangements (intermediate) and she just stared at me without answering, possibly responding to internal stimuli. After several minutes, she stated, "Can I go to [facility]." She would not elaborate why she want to go to [facility]. Patient was more engaging on previous assessment 11/11/2016. She denies SI/HI's and AVH's. Mental Status Exam - Vital signs Last Vital Signs Temp 98.1 F 11/11/16 13:57 Pulse 70 11/11/16 13:57 Resp 18 11/11/16 13:58 BP 127/72 11/11/16 13:57 Pulse Ox 97 11/11/16 13:58 - Exam Narrative exam: MSE: Appearance: calm, cooperative Behavior: regular eye contact Speech: regular rate and tone Mood: "okay" Affect: congruent to mood Thought Process: disorganized Thought Content: denies SI/HI's and AVH's Motor Activity: ambulatory Cognition: A/O x3 Insight: variable Judgment: variable Assessment and Plan Impression: Historical Dx: Schizophrenia/Select Mutism. Unspecified Mood DO with psychotic features. Today patient is calm during the assessment. Patient is disorganized. DDx: Schizoaffective DO, R/O Bipolar Recommendation/Plan: Continu3 1013 with placement to inpatient psy services. Continue Abilify 20 mg PO Daily for psychosis and Cogentin 0.5 mg PO HS EPS prevention. Start Haldol 10 mg PO HS for psychosis. Discussed possible metabolic side effects of Abilify with patient.
[2016-11-13] MEDS: ABILIFY PO SCH (12:04)
[2016-11-13] MEDS: COGENTIN PO SCH (12:05)
[2016-11-13] MEDS: HALDOL PO SCH (22:25)
[2016-11-14] MEDS: ABILIFY PO SCH (10:35)
[2016-11-14] MEDS: COGENTIN PO SCH ×2 (10:35→22:01)
--- NOTE | 2016-11-14 12:59 | Progress Note ---
Subjective - Reason for Consult Consult date: 11/14/16 Reason for consult: Mental Health Evaluation - Chief Complaint Chief complaint: "Nonverbal" Patient with multiple psychiatric diagnoses such as schizoaffective disorder, bipolar disorder and mutism presents to the emergency department for apparent decompensation. Today patient is calm but nonverbal during the assessment. The patient would not answer any questions asked of her. The patient is known for this type of behavior. Per the staff, she have been completing her ADL's. No gestures of SI/HI's and AVH's. Mental Status Exam - Vital signs Last Vital Signs Temp 97.6 F 11/14/16 10:00 Pulse 79 11/14/16 10:00 Resp 18 11/14/16 10:00 BP 148/86 11/14/16 10:00 Pulse Ox 96 11/14/16 10:00 - Exam Narrative exam: MSE: Appearance: calm Behavior: regular eye contact Speech: nonverbal today Mood: unable to assess Affect: flat Thought Process: unable to assess Thought Content: no gestures of SI/HI's and AVH's Motor Activity: ambulatory Cognition: unable to assess Insight: unable to assess Judgment: unable to assess Assessment and Plan Impression: Historical Dx: Schizophrenia/Select Mutism. Unspecified Mood DO with psychotic features. Today patient is calm during the assessment. Patient is nonverbal. DDx: Schizoaffective DO, R/O Bipolar Recommendation/Plan: Continue 1013 with placement to inpatient psy services. Continue Abilify 20 mg PO Daily for psychosis, Cogentin 0.5 mg PO BID EPS prevention, and Haldol 10 mg PO HS for psychosis. Discussed possible metabolic side effects of Abilify with patient.
[2016-11-14] MEDS: HALDOL PO SCH (22:03)
[2016-11-15] MEDS: COGENTIN PO SCH ×2 (11:04→22:19)
[2016-11-15] MEDS: ABILIFY PO SCH (11:04)
[2016-11-15] MEDS: TYLENOL PO PRN (16:25)
[2016-11-15] MEDS: HALDOL PO SCH (22:19)
[2016-11-16] MEDS: TYLENOL PO PRN (10:08)
[2016-11-16] MEDS: COGENTIN PO SCH ×2 (10:09→22:28)
[2016-11-16] MEDS: ABILIFY PO SCH (10:09)
--- NOTE | 2016-11-16 10:16 | Progress Note ---
Subjective - Reason for Consult Consult date: 11/16/16 Reason for consult: Psychiatry Follow-up - Chief Complaint Chief complaint: "Hello" Patient with multiple psychiatric diagnoses such as schizoaffective disorder, bipolar disorder and mutism presents to the emergency department for apparent decompensation. Today patient is calm with intermittent speech during the assessment. She did say "Hello" when greeted. She stated that she took her medications last night. Per the staff, she been completing her ADL's. No gestures of SI/HI's and AVH's. Mental Status Exam - Vital signs Last Vital Signs Temp 98.6 F 11/16/16 09:29 Pulse 73 11/16/16 09:29 Resp 20 11/16/16 09:31 BP 147/79 11/16/16 09:29 Pulse Ox 99 11/16/16 09:31 - Exam Narrative exam: MSE: Appearance: calm Behavior: regular eye contact Speech: intermittent speech Mood: "okay" Affect: flat Thought Process: unable to assess Thought Content: no gestures of SI/HI's and AVH's Motor Activity: ambulatory Cognition: unable to assess Insight: unable to assess Judgment: unable to assess Assessment and Plan Impression: Historical Dx: Schizophrenia/Select Mutism. Unspecified Mood DO with psychotic features. Today patient is calm during the assessment. Patient intermittent speech. DDx: Schizoaffective DO, R/O Bipolar Recommendation/Plan: Continue 1013 with placement to inpatient psy services. Continue Abilify 20 mg PO Daily for psychosis, Cogentin 0.5 mg PO BID EPS prevention, and Haldol 10 mg PO HS for psychosis. Discussed possible metabolic side effects of Abilify with patient.
[2016-11-16] MEDS: HALDOL PO SCH (22:27)
[2016-11-17 08:27] VITALS: BP 127/78
--- NOTE | 2016-11-17 09:10 | Progress Note ---
Subjective - Reason for Consult Consult date: 11/17/16 Reason for consult: Psychiatry Follow-up - Chief Complaint Chief complaint: "How are you" Patient with multiple psychiatric diagnoses such as schizoaffective disorder, bipolar disorder and mutism presents to the emergency department for apparent decompensation. Today patient is calm and cooperative during the assessment. She verbalized that she would like to be discharged and be placed at another senior living. She stated, "Inform me on what's next for me." This patient has episodes of select mutism. She denies SI/HI's and AVH's. Per the staff, patient is completing her ADL's. Patient has been compliant with her medications since her admission. She was observed eating her breakfast during the assessment. Mental Status Exam - Vital signs Last Vital Signs Temp 97.6 F 11/17/16 08:26 Pulse 57 L 11/17/16 08:26 Resp 18 11/17/16 08:26 BP 127/78 11/17/16 08:26 Pulse Ox 99 11/17/16 08:26 - Exam Narrative exam: MSE: Appearance: calm, cooperative Behavior: regular eye contact Speech: regular rate and tone Mood: "fine" Affect: congruent to mood Thought Process: circumstantial Thought Content: denies SI/HI's and AVH's Motor Activity: ambulatory Cognition: A/O x3 Insight: fair Judgment: fair Assessment and Plan Impression: Historical Dx: Schizophrenia/Select Mutism. Unspecified Mood DO with psychotic features. Today patient is calm during the assessment. Patient verbalized her concerns. DDx: Schizoaffective DO, R/O Bipolar Recommendation/Plan: Rescind 1013. Continue Abilify 20 mg PO Daily for psychosis , Cogentin 0.5 mg PO BID EPS prevention, and Haldol 10 mg PO HS for psychosis. Discussed possible metabolic side effects of Abilify with patient. Academic Records Specialist is involved to determine placement for patient. Patient is seen by Dr Katelynn Kirkland for outpatient psy services.
[2016-11-17] MEDS: COGENTIN PO SCH ×2 (10:21→22:14)
[2016-11-17] MEDS: ABILIFY PO SCH (10:21)
[2016-11-17] MEDS: HALDOL PO SCH (22:14)
== END 2016-11-18 04:16 ==
LOC: EDBD 20:41 → ED 20:41 → EEVIPCON 20:41 → ED 11-18 04:16
DX: F23 Brief psychotic disorder (principal); F25.0 Schizoaffective disorder, bipolar type; I10 Essential (primary) hypertension; Z88.0 Allergy status to penicillin
CPT/HCPCS: 36415; 80048; 80307; 81001; 85025; 96372; 99284; G0480; J3486; 80320

== ENCOUNTER 2016-12-19 20:56 | Emergency (ER) | payer MEDICARE ==
[2016-12-19 22:18] LABS: Basophils % (Auto) 0.4 % (0.0-1.8); Eosinophils % (Auto) 0.2 % (0.0-4.3); Hematocrit 40.7 % (30.3-42.9); Mean Corpuscular HGB Conc 32 % (30-34); Mean Corpuscular Volume 79 fl (79-97); Platelet Count 222 K/mm3 (140-440); Red Blood Count 5.17 M/mm3 (3.65-5.03); Red Cell Distribution Width 14.8 % (13.2-15.2); White Blood Count 5.4 K/mm3 (4.5-11.0)
[2016-12-19 22:19] LABS: Mean Corpuscular Hemoglobin 25 pg (28-32)
[2016-12-19 22:44] LABS: Urine Drugs of Abuse Note Disclamer
[2016-12-19 22:54] LABS: Bacteria,Urine 1+ /HPF (Negative); Bilirubin,Urine NEG (Negative); Blood,Urine NEG (Negative); Ketones,Urine TR mg/dL (Negative); Leukocyte Esterase,Urine TR (Negative); Mucus,Urine FEW /HPF; Nitrite,Urine NEG (Negative); Protein,Urine <15 mg/dL mg/dL (Negative); Urobilinogen,Urine < 2.0 mg/dL (<2.0)
[2016-12-19 22:56] LABS: Anion Gap 19 mmol/L; BUN/Creatinine Ratio 15; Blood Urea Nitrogen 9 mg/dL (7-17); Calcium 10.5 mg/dL (8.4-10.2); Carbon Dioxide 21 mmol/L (22-30); Chloride 104.4 mmol/L (98-107); Glucose 87 mg/dL (65-100); Potassium 3.9 mmol/L (3.6-5.0); Sodium 140 mmol/L (137-145)
--- NOTE | 2016-12-20 00:33 | Emergency Department Report ---
ED Psych HPI - General Stated Complaint: MH EVAL Time Seen by Provider: 12/20/16 00:29 Source: patient Mode of arrival: Ambulatory - History of Present Illness Initial Comments: 56 YO FEMALE WHO RESIDES AT A PERSONAL INTERMEDIATE WHO IS COMBATIVE AND NONCOMPLIANT WITH MEDICATIONS. SHE IS SENT HER TO BE PLACED FOR PSYCHIATRIC TREATMENT AND ADJUSTMENTS -: unknown - Related Data Home Medications Medication Instructions Recorded Confirmed Last Taken Benztropine [Cogentin] 1 mg PO BID 07/13/16 11/08/16 Unknown Levothyroxine [Synthroid] 25 mcg PO QAM 07/13/16 11/08/16 Unknown Lisinopril [Zestril TAB] 30 mg PO QDAY 07/13/16 11/08/16 Unknown Simvastatin [Zocor TAB] 20 mg PO QHS 07/13/16 11/08/16 Unknown Valsartan [Diovan] 160 mg PO QDAY 07/13/16 11/08/16 Unknown amLODIPine [Norvasc] 10 mg PO DAILY 07/13/16 11/08/16 Unknown clonazePAM 0.5 mg PO BID 07/13/16 11/08/16 Unknown diphenhydrAMINE [Benadryl CAP] 50 mg PO QHS 07/13/16 11/08/16 Unknown risperiDONE [RisperiDONE] 3 mg PO BID 07/13/16 11/08/16 Unknown Allergies Allergy/AdvReac Type Severity Reaction Status Date / Time Penicillins Allergy Unknown Verified 06/20/16 06:58 ED Review of Systems ROS: Stated complaint: MH EVAL Other details as noted in HPI Constitutional: denies: chills, fever Eyes: denies: eye pain, eye discharge, vision change ENT: denies: ear pain, throat pain Respiratory: denies: cough, shortness of breath, wheezing Cardiovascular: denies: chest pain, palpitations Endocrine: no symptoms reported Gastrointestinal: denies: abdominal pain, nausea, diarrhea Genitourinary: denies: urgency, dysuria, discharge Musculoskeletal: denies: back pain, joint swelling, arthralgia Skin: denies: rash, lesions Neurological: denies: headache, weakness, paresthesias Psychiatric: denies: anxiety, depression Hematological/Lymphatic: denies: easy bleeding, easy bruising ED Past Medical Hx - Past Medical History Previous Medical History?: Yes Hx Hypertension: Yes Hx Sickle Cell Disease: Yes (sickle cell trait) Hx Psychiatric Treatment: Yes (schizoaffective disorder, bipolar, agressive) Additional medical history: unknown - Surgical History Additional Surgical History: unknown - Social History Smoking Status: Never Smoker - Medications Home Medications: Home Medications Medication Instructions Recorded Confirmed Last Taken Type Benztropine [Cogentin] 1 mg PO BID 07/13/16 11/08/16 Unknown History Levothyroxine [Synthroid] 25 mcg PO QAM 07/13/16 11/08/16 Unknown History Lisinopril [Zestril TAB] 30 mg PO QDAY 07/13/16 11/08/16 Unknown History Simvastatin [Zocor TAB] 20 mg PO QHS 07/13/16 11/08/16 Unknown History Valsartan [Diovan] 160 mg PO QDAY 07/13/16 11/08/16 Unknown History amLODIPine [Norvasc] 10 mg PO DAILY 07/13/16 11/08/16 Unknown History clonazePAM 0.5 mg PO BID 07/13/16 11/08/16 Unknown History diphenhydrAMINE [Benadryl CAP] 50 mg PO QHS 07/13/16 11/08/16 Unknown History risperiDONE [RisperiDONE] 3 mg PO BID 07/13/16 11/08/16 Unknown History ED Physical Exam - General Limitations: Other (NONCOMMUNICATIVE) General appearance: alert, in no apparent distress - Head Head exam: Present: atraumatic, normocephalic - Eye Eye exam: Present: normal appearance - ENT ENT exam: Present: mucous membranes moist - Neck Neck exam: Present: normal inspection - Respiratory Respiratory exam: Present: normal lung sounds bilaterally. Absent: respiratory distress - Cardiovascular Cardiovascular Exam: Present: regular rate, normal rhythm. Absent: systolic murmur, diastolic murmur, rubs, gallop - GI/Abdominal GI/Abdominal exam: Present: soft, normal bowel sounds - Extremities Exam Extremities exam: Present: normal inspection - Back Exam Back exam: Present: normal inspection - Neurological Exam Neurological exam: Present: alert, oriented X3 - Psychiatric Psychiatric exam: Present: normal affect, normal mood - Skin Skin exam: Present: warm, dry, intact, normal color. Absent: rash ED Course Vital Signs 12/19/16 21:59 Temperature 98.3 F Pulse Rate 92 H Respiratory 18 Rate Blood Pressure 160/94 [Left] O2 Sat by Pulse 99 Oximetry ED Medical Decision Making - Lab Data Result diagrams: 12/19/16 22:02 12/19/16 22:02 Critical care attestation.: If time is entered above; I have spent that time in minutes in the direct care of this critically ill patient, excluding procedure time. ED Disposition Clinical Impression: Schizo affective schizophrenia Hypertension Qualifiers: Hypertension type: unspecified Qualified Code(s): I10 - Essential (primary) hypertension Disposition: [facility] IP Is pt being admited?: Yes Condition: Stable Instructions: Hypertension (ED) Referrals: PRIMARY CARE, [Primary Care Provider] - 3-5 Days
--- NOTE | 2016-12-20 12:46 | Consultation ---
History of Present Illness - Reason for Consult Consult date: 12/20/16 Reason for consult: Mental Health Evaluation Requesting physician: CHUYITA CASANOVA - Chief Complaint Chief complaint: "Patient says very little" - History of Present Psychiatric Illness 56 y.o. AA female presenting to [facility] for combative behavior and noncompliance of medications. This patient is known to me. Today patient is calm, but nonverbal during the assessment. She would not answer any questions asked of her. Patient was observed eating her breakfast. No gestures of SI/HI's. Medications and Allergies Allergies Allergy/AdvReac Type Severity Reaction Status Date / Time Penicillins Allergy Unknown Verified 06/20/16 06:58 Home Medications Medication Instructions Recorded Confirmed Last Taken Type Benztropine [Cogentin] 1 mg PO BID 07/13/16 11/08/16 Unknown History Levothyroxine [Synthroid] 25 mcg PO QAM 07/13/16 11/08/16 Unknown History Lisinopril [Zestril TAB] 30 mg PO QDAY 07/13/16 11/08/16 Unknown History Simvastatin [Zocor TAB] 20 mg PO QHS 07/13/16 11/08/16 Unknown History Valsartan [Diovan] 160 mg PO QDAY 07/13/16 11/08/16 Unknown History amLODIPine [Norvasc] 10 mg PO DAILY 07/13/16 11/08/16 Unknown History clonazePAM 0.5 mg PO BID 07/13/16 11/08/16 Unknown History diphenhydrAMINE [Benadryl CAP] 50 mg PO QHS 07/13/16 11/08/16 Unknown History risperiDONE [RisperiDONE] 3 mg PO BID 07/13/16 11/08/16 Unknown History Past psychiatric history - Past Medical History Past Medical History: hypertension Past Surgical History: Other (Unable to obtain) - past Psychiatric treatment and history Psych: Schizophrenia psychiatric treatment history: Multiple inpatient psy settings. Unable to obtain fam psy hx. - Social History Social history: other (Resides at a correction) Mental Status Exam - Vital signs Last Vital Signs Temp 98.3 F 12/19/16 21:59 Pulse 92 H 12/19/16 21:59 Resp 16 12/20/16 10:42 BP 160/94 12/19/16 21:59 Pulse Ox 98 12/20/16 10:42 - Exam Narrative exam: MSE: Appearance: calm Behavior: stare with normal blink rate Speech: nonverbal Mood: unable to assess Affect: flat Thought Process: unable to assess Thought Content: no gestures of SI/HI's and AVH's Motor Activity: ambulatory Cognition: unable to assess Insight: unable to assess Judgment: unable to assess Results Result Diagrams: 12/19/16 22:02 12/19/16 22:02 Abnormal lab results 12/19/16 12/19/16 Range/Units 22:02 22:02 RBC 5.17 H (3.65-5.03) M/mm3 MCH 25 L (28-32) pg [facility] % (Auto) 8.3 H (0.0-7.3) % Lymph # 0.8 L (1.2-5.4) K/mm3 Seg Neutrophils % 76.0 H (40.0-70.0) % Carbon Dioxide 21 L (22-30) mmol/L Creatinine 0.6 L (0.7-1.2) mg/dL Calcium 10.5 H (8.4-10.2) mg/dL All other labs normal. Assessment and Plan Assessment and plan: Impression: History of Schizophrenia/Select Mutism. Unspecified Psychosis. Today patient is calm, but nonverbal during the assessment. DDx: R/O Schizoaffective DO Recommendation/Plan: Continue 1013 with placement to inpatient psy services. Start Abilify 10 mg PO daily for psychosis and Cogentin 0.5 mg PO daily for EPS prevention. Discussed possible metabolic side effects of Abilify with patient. CK ordered.
[2016-12-20] MEDS ORDERED: COGENTIN PO SCH (14:00)
[2016-12-20] MEDS ORDERED: ABILIFY PO SCH (14:00)
[2016-12-20] MEDS ORDERED: TYLENOL ONE (17:21)
[2016-12-20] MEDS ORDERED: TYLENOL PO ONE (17:22)
[2016-12-20 20:01] VITALS: BP 137/67
== END 2016-12-20 23:03 | disposition short-term general hospital (02) ==
LOC: EEVIPCON 20:56 → ED 20:56
DX: F20.9 Schizophrenia, unspecified (principal); I10 Essential (primary) hypertension; D57.1 Sickle-cell disease without crisis; F31.9 Bipolar disorder, unspecified; Z88.0 Allergy status to penicillin
CPT/HCPCS: 36415; 80048; 80307; 81001; 82550; 85025; 99285; G0480; 80320

== ENCOUNTER 2017-01-07 15:11 | Emergency (ER) | payer MEDICARE ==
[2017-01-07 22:11] LABS: Basophils % (Auto) 0.5 % (0.0-1.8); Eosinophils % (Auto) 0.3 % (0.0-4.3); Hematocrit 40.5 % (30.3-42.9); Hemoglobin 12.9 gm/dl (10.1-14.3); Mean Corpuscular HGB Conc 32 % (30-34); Mean Corpuscular Volume 78 fl (79-97); Platelet Count 168 K/mm3 (140-440); Red Blood Count 5.18 M/mm3 (3.65-5.03); Red Cell Distribution Width 14.7 % (13.2-15.2); White Blood Count 5.2 K/mm3 (4.5-11.0)
[2017-01-07 22:28] LABS: Alanine Aminotransferase 9 units/L (7-56); Albumin 4.2 g/dL (3.9-5); Albumin/Globulin Ratio 1.1 %; Alkaline Phosphatase 83 units/L (35-129); Anion Gap 17 mmol/L; BUN/Creatinine Ratio 18; Blood Urea Nitrogen 9 mg/dL (7-17); Calcium 10.4 mg/dL (8.4-10.2); Carbon Dioxide 24 mmol/L (22-30); Chloride 103.6 mmol/L (98-107); Glucose 97 mg/dL (65-100); Mean Corpuscular Hemoglobin 25 pg (28-32); Potassium 3.4 mmol/L (3.6-5.0); Sodium 141 mmol/L (137-145); Total Protein 7.9 g/dL (6.3-8.2)
[2017-01-07 22:36] LABS: Urine Drugs of Abuse Note Disclamer
[2017-01-07 22:54] LABS: Bacteria,Urine 1+ /HPF (Negative); Bilirubin,Urine NEG (Negative); Blood,Urine NEG (Negative); Ketones,Urine NEG (Negative); Leukocyte Esterase,Urine MOD (Negative); Mucus,Urine FEW /HPF; Nitrite,Urine NEG (Negative); Protein,Urine <15 mg/dL mg/dL (Negative); Urobilinogen,Urine < 2.0 mg/dL (<2.0)
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
[2017-01-08] MEDS ORDERED: KEFLEX PO ONE (02:35)
--- NOTE | 2017-01-08 11:53 | Consultation ---
History of Present Illness - Reason for Consult Consult date: 01/08/17 Reason for consult: Mental Health Evaluation Requesting physician: MACIE POST - Chief Complaint Chief complaint: "Patient nonverbal" - History of Present Psychiatric Illness 56 y.o AA female because of bizarre behavior and not taking psy medication. This patient is known to me with her last admission 12/19/2016. Today the patient is calm, but nonverbal during the interview. She would look away when asked questions. She has presented this way several times on previous admission to the hospital. No gestures of SI/HI's. Medications and Allergies Allergies Allergy/AdvReac Type Severity Reaction Status Date / Time Penicillins Allergy Unknown Verified 01/07/17 16:11 Home Medications Medication Instructions Recorded Confirmed Last Taken Type Levothyroxine [Synthroid] 25 mcg PO QAM 07/13/16 01/07/17 Unknown History amLODIPine [Norvasc] 5 mg PO DAILY 07/13/16 01/07/17 Unknown History clonazePAM 0.5 mg PO BID 07/13/16 01/07/17 Unknown History diphenhydrAMINE [Benadryl CAP] 50 mg PO QHS 07/13/16 01/07/17 Unknown History risperiDONE [RisperiDONE] 3 mg PO BID 07/13/16 01/07/[address] [Castillo THOMAS] 500 mg PO BID 01/07/17 01/07/17 Unknown History Paliperidone Palmitate [Invega 156 mg IM QMONTH 01/07/17 01/07/17 Unknown History Sustenna] Past psychiatric history - Past Medical History Past Medical History: hypertension Past Surgical History: Other (Unable to obtain) - past Psychiatric treatment and history Psych: Schizophrenia psychiatric treatment history: Multiple inpatient settings. Unable to obtain a fam psy hx. - Social History Social history: other ([facility] at a [facility]) Mental Status Exam - Vital signs Last Vital Signs Temp 98.2 F 01/07/17 16:11 Pulse 120 H 01/07/17 16:11 Resp 18 01/07/17 22:14 BP 142/99 01/07/17 19:30 Pulse Ox 99 01/07/17 22:14 - Exam Narrative exam: MSE: Appearance: calm Behavior: poor eye contact Speech: nonverbal Mood: quiet Affect: flat Thought Process: unable to assess Thought Content: no gestures of SI/HI's Motor Activity: lying in bed Cognition: alert Insight: unable to assess Judgment: unable to assess Results Result Diagrams: 01/07/17 18:31 01/07/17 18:31 Abnormal lab results 01/07/17 01/07/17 Range/Units 18:31 18:31 RBC 5.18 H (3.65-5.03) M/mm3 MCV 78 L (79-97) fl MCH 25 L (28-32) pg [place] % (Auto) 10.4 H (0.0-7.3) % Lymph # 1.1 L (1.2-5.4) K/mm3 Potassium 3.4 L (3.6-5.0) mmol/L Creatinine 0.5 L (0.7-1.2) mg/dL Calcium 10.4 H (8.4-10.2) mg/dL All other labs normal. Assessment and Plan Assessment and plan: Impression: Schizophrenia. Select Mutism. Today the patient is calm, but nonverbal during the interview. UDS is negative and Alcohol serum WNL. DDx: R/O Schizoaffective DO Recommendation/Plan: Continue 1013 with placement to inpatient psy services. Start Risperdal 0.5 mg PO HS for schizophrenia and Cogentin 0.5 mg PO HS for EPS prevention.
[2017-01-08] MEDS ORDERED: RisperDAL PO SCH ×2 (22:00)
[2017-01-08] MEDS ORDERED: COGENTIN PO SCH (22:00)
--- NOTE | 2017-01-09 11:58 | Progress Note ---
Subjective - Reason for Consult Consult date: 01/09/17 Reason for consult: Psychiatry Follow-up - Chief Complaint Chief complaint: "Yes" 56 y.o AA female because of bizarre behavior and not taking her psy medications. Today patient is calm and cooperative during the assessment. She would answer most of my questions asked of her. She denies SI/HI's and AVH's. Per the staff, no behavioral disturbance since her admission 2 days ago. She nodded "No" when asked about side effects of her medications. Mental Status Exam - Vital signs Last Vital Signs Temp 98.4 F 01/08/17 19:05 Pulse 83 01/08/17 19:05 Resp 18 01/09/17 10:08 BP 139/74 01/08/17 19:05 Pulse Ox 98 01/09/17 10:08 - Exam Narrative exam: MSE: Appearance: calm, cooperative Behavior: regular eye contact Speech: regular rate and tone Mood: "okay" Affect: congruent to mood Thought Process: circumstantial Thought Content: denies SI/HI's and AVH's Motor Activity: lying in bed Cognition: A/Ox 3 Insight: variable Judgment: variable Assessment and Plan Impression: Schizophrenia. Select Mutism. Today patient is calm and cooperative during the assessment. UDS is negative and Alcohol serum WNL. DDx: R/O Schizoaffective DO Recommendation/Plan: Rescind 1013. Continue Risperdal 0.5 mg PO HS for schizophrenia and Cogentin 0.5 mg PO HS for EPS prevention. Patient can follow- up with [facility] for outpatient psy services. Social Service involvement , patient will need assistance with transportation back to her longterm.
[2017-01-09 14:11] VITALS: BP 141/80
== END 2017-01-09 20:07 | disposition home or self-care (01) ==
LOC: ED 15:11 → EEVIPCON 15:11 → ED 01-09 20:07
DX: F25.8 Other schizoaffective disorders (principal); F91.8 Other conduct disorders; N30.00 Acute cystitis without hematuria; I10 Essential (primary) hypertension; F31.9 Bipolar disorder, unspecified; D57.3 Sickle-cell trait; Z88.0 Allergy status to penicillin
CPT/HCPCS: 36415; 80053; 80307; 81001; 85025; 99284; G0480; 80320

== ENCOUNTER 2017-03-02 18:04 | Emergency (ER) | payer MEDICARE ==
[2017-03-02 19:29] VITALS: BP 199/115
[2017-03-02 20:38] LABS: Basophils # (Auto) 0.1 K/mm3 (0.0-0.1); Basophils % (Auto) 0.8 % (0.0-1.8); Eosinophils % (Auto) 0.1 % (0.0-4.3); Hemoglobin 13.1 gm/dl (10.1-14.3); Lymphocytes # (Auto) 0.7 K/mm3 (1.2-5.4); Lymphocytes % (Auto) 11.8 % (13.4-35.0); Mean Corpuscular HGB Conc 31 % (30-34); Mean Corpuscular Volume 78 fl (79-97); Monocytes # (Auto) 0.4 K/mm3 (0.0-0.8); Monocytes % (Auto) 6.9 % (0.0-7.3); Platelet Count 184 K/mm3 (140-440); Red Blood Count 5.38 M/mm3 (3.65-5.03); Red Cell Distribution Width 15.6 % (13.2-15.2)
[2017-03-02 20:39] LABS: Mean Corpuscular Hemoglobin 24 pg (28-32)
[2017-03-02 20:53] LABS: BUN/Creatinine Ratio 24; Blood Urea Nitrogen 17 mg/dL (7-17); Hemolysis Index 30
== END 2017-03-03 00:30 | disposition left against medical advice (07) ==
LOC: ED 18:04
DX: Z53.21 Procedure and treatment not carried out due to patient leaving prior to being seen by health care provider (principal)
CPT/HCPCS: 36415; 80048; 85025; G0480; 80320

== ENCOUNTER 2017-03-03 13:22 | Emergency (ER) | payer MEDICARE ==
[2017-03-03 18:54] LABS: Basophils % (Auto) 0.6 % (0.0-1.8); Eosinophils % (Auto) 0.1 % (0.0-4.3); Hematocrit 38.5 % (30.3-42.9); Hemoglobin 12.4 gm/dl (10.1-14.3); Lymphocytes # (Auto) 0.7 K/mm3 (1.2-5.4); Lymphocytes % (Auto) 11.1 % (13.4-35.0); Mean Corpuscular HGB Conc 32 % (30-34); Mean Corpuscular Volume 78 fl (79-97); Monocytes # (Auto) 0.3 K/mm3 (0.0-0.8); Monocytes % (Auto) 5.6 % (0.0-7.3); Platelet Count 161 K/mm3 (140-440); Red Blood Count 4.97 M/mm3 (3.65-5.03); Red Cell Distribution Width 15.3 % (13.2-15.2)
[2017-03-03 18:55] LABS: Mean Corpuscular Hemoglobin 25 pg (28-32)
[2017-03-03 19:18] LABS: BUN/Creatinine Ratio 28; Blood Urea Nitrogen 14 mg/dL (7-17); Calcium 10.5 mg/dL (8.4-10.2); Hemolysis Index 15
--- NOTE | 2017-03-04 01:35 | Emergency Department Report ---
ED Psych HPI - General Chief Complaint: Psych Stated Complaint: MH EVAL Time Seen by Provider: 03/03/17 22:56 Source: patient Mode of arrival: Wheelchair - History of Present Illness Initial Comments: 57 yo female who comes to the ED after she eloped and was found wandering in the hospital. The patient didn't answer any questions while I was in the room. She didn't answer any of my questions. She continued to act as if she were asleep. She didn't answer whether she wanted to hurt herself or anyone else. Past medical history positive for psych. MD Complaint: other (uncooperative ) -: This evening Associated Psychiatric Symptoms: other (patient didn't answer any questions ) History of same: Yes Treatments Prior to Arrival: none - Related Data Home Medications Medication Instructions Recorded Confirmed Last Taken Levothyroxine [Synthroid] 25 mcg PO QAM 07/13/16 01/07/17 Unknown amLODIPine [Norvasc] 5 mg PO DAILY 07/13/16 01/07/17 Unknown clonazePAM 0.5 mg PO BID 07/13/16 01/07/17 Unknown diphenhydrAMINE [Benadryl CAP] 50 mg PO QHS 07/13/16 01/07/17 Unknown risperiDONE [RisperiDONE] 3 mg PO BID 07/13/16 01/07/17 Unknown Divalproex [Castillo THOMAS] 500 mg PO BID 01/07/17 01/07/17 Unknown Paliperidone Palmitate [Invega 156 mg IM QMONTH 01/07/17 01/07/17 Unknown Sustenna] Allergies Allergy/AdvReac Type Severity Reaction Status Date / Time Penicillins Allergy Unknown Verified 01/07/17 16:11 ED Review of Systems ROS: Stated complaint: MH EVAL Other details as noted in HPI Comment: Unobtainable due to pts medical conditions (Patient didn't answer or respond to any questions on interview) ED Past Medical Hx - Past Medical History Hx Hypertension: Yes Hx Sickle Cell Disease: Yes (sickle cell trait) Hx Psychiatric Treatment: Yes (schizoaffective disorder, bipolar, agressive) Additional medical history: unknown - Surgical History Additional Surgical History: unknown - Social History Smoking Status: Never Smoker - Medications Home Medications: Home Medications Medication Instructions Recorded Confirmed Last Taken Type Levothyroxine [Synthroid] 25 mcg PO QAM 07/13/16 01/07/17 Unknown History amLODIPine [Norvasc] 5 mg PO DAILY 07/13/16 01/07/17 Unknown History clonazePAM 0.5 mg PO BID 07/13/16 01/07/17 Unknown History diphenhydrAMINE [Benadryl CAP] 50 mg PO QHS 07/13/16 01/07/17 Unknown History risperiDONE [RisperiDONE] 3 mg PO BID 07/13/16 01/07/[address] [DepaKOTE DR] 500 mg PO BID 01/07/17 01/07/17 Unknown History Paliperidone Palmitate [Invega 156 mg IM QMONTH 01/07/17 01/07/17 Unknown History Sustenna] ED Physical Exam - General Limitations: No Limitations General appearance: alert, in no apparent distress - Head Head exam: Present: atraumatic, normocephalic - Eye Eye exam: Present: normal appearance - ENT ENT exam: Present: mucous membranes moist - Neck Neck exam: Present: normal inspection - Respiratory Respiratory exam: Present: normal lung sounds bilaterally. Absent: respiratory distress - Cardiovascular Cardiovascular Exam: Present: regular rate, normal rhythm. Absent: systolic murmur, diastolic murmur, rubs, gallop - Extremities Exam Extremities exam: Present: normal inspection - Back Exam Back exam: Present: normal inspection - Neurological Exam Neurological exam: Present: alert - Psychiatric Psychiatric exam: Present: agitated, other (uncooperative) - Skin Skin exam: Present: warm, dry, intact, normal color. Absent: rash ED Course - Reevaluation(s) Reevaluation #1: 03/04/17 01:36 The patient is uncooperative and doesn't want to answer any questions. Will have mental health evaluate the patient for possible placement. ED Medical Decision Making - Lab Data Result diagrams: 03/03/17 18:35 03/03/17 18:35 Critical care attestation.: If time is entered above; I have spent that time in minutes in the direct care of this critically ill patient, excluding procedure time. ED Disposition Condition: Stable Referrals: PRIMARY CARE,MD [Primary Care Provider] - 3-5 Days
[2017-03-04] MEDS ORDERED: NORMODYNE PO ONE (08:02)
[2017-03-04] MEDS ORDERED: NORCO 5/325 PO ONE (08:03)
[2017-03-04] MEDS ORDERED: TYLENOL PO ONE (20:09)
--- NOTE | 2017-03-05 10:50 | Consultation ---
History of Present Illness - Reason for Consult Consult date: 03/05/17 Reason for consult: Mental Health Evaluation Requesting physician: BRISEYDA ARCINIEGA - Chief Complaint Chief complaint: "I don't want to return to my prison" - History of Present Psychiatric Illness 57 y.o. AA female who comes to the ED after she eloped and was found wandering in the hospital. This patient is known to me. She is known not to talk, but today she was willing to speak with me. Today the patient is calm and cooperative during the assessment. She stated that she was dropped off by paramedics from her prison. She stated that she isn't getting along with some of the staff at her residence. She stated when she was discharged earlier yesterday, she stayed at the hospital because she didn't want to return to the prison. She stated that she is compliant with her medications (Risperdal/ Cogentin). When she was asked about hearing voices, she stated, "Not lately." She denies SI/HI's and AVH's. She denies a poor appetite and sleep disturbance. She denies recreational drug use and alcohol consumption (etoh). Patient was observed eating her breakfast this morning. Medications and Allergies Allergies Allergy/AdvReac Type Severity Reaction Status Date / Time Penicillins Allergy Unknown Verified 01/07/17 16:11 Home Medications Medication Instructions Recorded Confirmed Last Taken Type Levothyroxine [Synthroid] 25 mcg PO QAM 07/13/16 03/04/17 Unknown History amLODIPine [Norvasc] 5 mg PO DAILY 07/13/16 03/04/17 Unknown History clonazePAM 0.5 mg PO BID 07/13/16 03/04/17 Unknown History diphenhydrAMINE [Benadryl CAP] 50 mg PO QHS 07/13/16 03/04/17 Unknown History risperiDONE [RisperiDONE] 3 mg PO BID 07/13/16 03/04/17 Unknown History Divalproex [Castillo THOMAS] 500 mg PO BID 01/07/17 03/04/17 Unknown History Paliperidone Palmitate [Invega 156 mg IM QMONTH 01/07/17 03/04/17 Unknown History Sustenna] Mental Status Exam - Vital signs Last Vital Signs Temp 98.9 F 03/04/17 09:08 Pulse 75 03/04/17 09:08 Resp 18 03/04/17 09:08 BP 168/94 03/04/17 09:08 Pulse Ox 95 03/04/17 09:08 - Exam Narrative exam: MSE: Appearance: calm, cooperative Behavior: regular eye contact Speech: regular rate and tone Mood: "okay" Affect: congruent to mood Thought Process: circumstantial Thought Content: denies SI/HI's and AVH's Motor Activity: ambulatory Cognition: A/O x 3 Insight: fair Judgment: fair Results Result Diagrams: 03/03/17 18:35 03/03/17 18:35 All other labs normal. Assessment and Plan Assessment and plan: Impression: Hx of Schizophrenia. Today the patient is calm and cooperative during the assessment. Patient denies any perceptional disturbances. Recommendation/Plan: Patient can follow-up with [facility] for outpatient psy services. Clinical Staff Educator was contacted, patient may need placement. Patient does not need prescriptions when discharged.
[2017-03-06 05:30] VITALS: BP 180/77
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
--- NOTE | 2017-03-06 11:36 | Emergency Department Report ---
ED Psych HPI - General Chief Complaint: Psych Stated Complaint: MH EVAL Time Seen by Provider: 03/03/17 22:56 Source: patient Mode of arrival: Wheelchair - History of Present Illness Treatments Prior to Arrival: none - Related Data Home Medications Medication Instructions Recorded Confirmed Last Taken Levothyroxine [Synthroid] 25 mcg PO QAM 07/13/16 03/04/17 Unknown amLODIPine [Norvasc] 5 mg PO DAILY 07/13/16 03/04/17 Unknown clonazePAM 0.5 mg PO BID 07/13/16 03/04/17 Unknown diphenhydrAMINE [Benadryl CAP] 50 mg PO QHS 07/13/16 03/04/17 Unknown risperiDONE [RisperiDONE] 3 mg PO BID 07/13/16 03/04/17 Unknown Divalproex [Castillo THOMAS] 500 mg PO BID 01/07/17 03/04/17 Unknown Paliperidone Palmitate [Invega 156 mg IM QMONTH 01/07/17 03/04/17 Unknown Sustenna] Allergies Allergy/AdvReac Type Severity Reaction Status Date / Time Penicillins Allergy Unknown Verified 01/07/17 16:11 ED Review of Systems ROS: Stated complaint: MH EVAL Other details as noted in HPI ED Past Medical Hx - Past Medical History Hx Hypertension: Yes Hx Sickle Cell Disease: Yes (sickle cell trait) Hx Psychiatric Treatment: Yes (schizoaffective disorder, bipolar, agressive) Additional medical history: unknown - Surgical History Additional Surgical History: unknown - Social History Smoking Status: Smoker, Current Status Unknown - Medications Home Medications: Home Medications Medication Instructions Recorded Confirmed Last Taken Type Levothyroxine [Synthroid] 25 mcg PO QAM 07/13/16 03/04/17 Unknown History amLODIPine [Norvasc] 5 mg PO DAILY 07/13/16 03/04/17 Unknown History clonazePAM 0.5 mg PO BID 07/13/16 03/04/17 Unknown History diphenhydrAMINE [Benadryl CAP] 50 mg PO QHS 07/13/16 03/04/17 Unknown History risperiDONE [RisperiDONE] 3 mg PO BID 07/13/16 03/04/17 Unknown History Divalproex [Castillo THOMAS] 500 mg PO BID 01/07/17 03/04/17 Unknown History Paliperidone Palmitate [Invega 156 mg IM QMONTH 01/07/17 03/04/17 Unknown History Sustenna] ED Physical Exam - General Limitations: No Limitations General appearance: alert, in no apparent distress ED Course Vital Signs 03/04/17 03/05/17 03/06/17 09:08 13:00 01:07 Temperature 98.9 F Pulse Rate 75 83 Respiratory 18 18 Rate Blood Pressure 168/94 180/77 Blood Pressure 168/94 [Left] O2 Sat by Pulse 95 100 Oximetry ED Medical Decision Making - Lab Data Result diagrams: 03/03/17 18:35 03/03/17 18:35 - Medical Decision Making Please see full H&P by my colleague. Psychiatry service felt patient was appropriate for discharge. Critical care attestation.: If time is entered above; I have spent that time in minutes in the direct care of this critically ill patient, excluding procedure time. ED Disposition Clinical Impression: Aggressive behavior of adult Disposition: DC/[place]-06 HOME UNDER HOME HLTH Is pt being admited?: No Does the pt Need Aspirin: No Condition: Stable Instructions: Conduct Disorder (ED) Referrals: PRIMARY CARE, [Primary Care Provider] - 3-5 Days
== END 2017-03-06 13:36 | disposition home health service (06) ==
LOC: EEVIPCON 13:22 → ED 13:22
DX: F91.8 Other conduct disorders (principal); I10 Essential (primary) hypertension; F20.9 Schizophrenia, unspecified; F31.9 Bipolar disorder, unspecified; Z88.0 Allergy status to penicillin; D57.3 Sickle-cell trait
CPT/HCPCS: 36415; 80048; 85025; 99284; G0480; 80320